=== PATIENT | female | born 1990 | race Caucasian/White ===

== ENCOUNTER 2023-06-08 19:56 | Emergency (ER) | payer BC, SELFPAY ==
--- NOTE | ~2023-06-08 | XR_ITS ---
EXAMINATION: XR WRIST, LEFT XR HAND, LEFT CLINICAL INFORMATION: Crush injury. Dog bite COMPARISON: None available. TECHNIQUE: Four views of the left wrist and hand FINDINGS: LEFT AND/WRIST: Bones are normal anatomic alignment with no acute fracture or dislocation seen. There is a subtle soft tissue irregularity along the volar thenar aspect of the first metacarpal region. I'm uncertain if this is projectional from overlying bandage material or whether this is related to subtle debris in the soft tissues. Clinical correlation would be recommended. No obvious soft tissue gas. XR/XR hand wrist LT IMPRESSION: No acute fracture or dislocation. There is a subtle soft tissue irregularity along the volar thenar aspect of the first metacarpal region. I'm uncertain if this is projectional from overlying bandage material or whether this is related to subtle soft tissue debris.
[2023-06-08 20:30] VITALS: BP 130/93; PULSE 107; RESP 18; TEMP 37.7; O2SAT 100; BMI 21.4
--- NOTE | 2023-06-08 20:30 | ED_ITS ---
HPI - Animal Bite General Chief Complaint: Animal Bite Stated Complaint: dog bite Related Data Allergies Allergy/AdvReac Type Severity Reaction Status Date / Time oxycodone [OXYCODONE] Allergy Intermediate RASH Unverified 05/26/21 13:43 cefaclor [From [facility]] Allergy Unknown ANAPHYLAXIS Unverified 05/26/21 13:43 [facility] Social History Social History (System 05/26/21 @ 13:43 by Meagan Gatica) Advance Directives: No Advance Directives Information Provided: No Physical Exam ED Vital Signs: BMI result Body Mass Index 21.4 Course Course Course Narrative: This is a rapid medical exam. Deferred additional HPI, ROS, PE to primary provider. 32 yo female with no known medical history here with dog bite after her two dogs who were fighting each other. Dogs are UTD with rabies vaccination Patient with dog bite over the left hand/thenar with lacerations noted-slight bleeding which is controlled. C/o of more proximal numbness over the forearm but patient denies any injury over this locations. Normal sensation in the hand, normal radial/ulnar pulses palpated, skin is pink. Does also have bite over right hand with small abrasion noted-FROM of this hand with no complaints. Will check x-rays VSS Medications Administered Discontinued Medications Generic Name Dose Route Start Last Admin Trade Name Freq PRN Reason Stop Dose Admin Ibuprofen 600 mg 06/08/23 20:32 06/08/23 20:40 Ibuprofen 600 Mg Tablet PO 06/08/23 20:33 600 mg ONCE ONE Administration Discharge Plan Discharge Clinical Impression: Bite by animal Patient Disposition: Left W/O Completing Treatment Interventions: LWBS Worksheet Last Done: 06/09/23 01:29 Discharge Date/Time: 06/09/23 01:30
[2023-06-08] MEDS: Ibuprofen 600 MG TABLET PO (20:40)
[2023-06-09 00:07] VITALS: BP 118/79; PULSE 87; RESP 18; TEMP 37.2; O2SAT 100
--- NOTE | 2023-06-09 01:26 | PC.NURSE ---
RN and tariff inspector called pt back into triage after she made her desires known that she would like to leave because shes not waiting. Pt awake and alert without distress noted. She was encouraged to stay for eval of the hand but she was apprehensive. RN made pt aware that she believed it was in her best interest to be seen for eval by some type of medical provider tonight or tomorrow. Pt and visitor both verbalized understanding, despite staff's attempts the pt still chose to leave as she was no longer willing to wait.
== END 2023-06-09 01:30 | disposition left against medical advice (07) ==
LOC: HO.ED 06-09 01:53
PROVIDERS: Emergency Provider Emergency Medicine
DX: S61.452A Open bite of left hand, initial encounter (principal); S51.852A Open bite of left forearm, initial encounter; W54.0XXA Bitten by dog, initial encounter; Y93.9 Activity, unspecified; Y92.9 Unspecified place or not applicable; Y99.9 Unspecified external cause status
CPT/HCPCS: 73110; 73130; 99283